=== PATIENT | male | born 2000 | race Caucasian/White ===

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

== ENCOUNTER → 2021-04-13 15:35 | Outpatient (CLI) | payer MEDICAID, SELFPAY ==
--- NOTE | 2021-04-13 15:55 | RAD_ITS ---
STUDY: X-RAY CHEST REASON FOR EXAM: Male, 20 years old. PNEUMONIA TECHNIQUE: Frontal and lateral views COMPARISON: None. FINDINGS: The lungs are clear and expanded. There is no demonstrated pleural abnormality. Normal size heart. Normal mediastinum and ricardo. Normal visualized pulmonary arteries. Normal visualized aortic arch and descending thoracic aorta. Normal visualized thoracic spine. Normal visualized ribs, clavicles, and shoulders. There is no demonstrated abnormality of the visualized soft tissue structures of the upper abdomen. RAD/Chest PA and Lateral IMPRESSION: Normal x-ray examination of the chest. Electronically Signed: Eb Patterson DO at 16:08 EST Tel [phone], Service support ,
[2021-04-13 16:26] LABS: Absolute Lymphocyte Count 2.77 X10^3/uL (0.83-4.51); Absolute Neutrophil Count 5.1 X10^3/uL (2.0-7.7); Basophil# 0.02 X10^3/uL; Basophil% 0.2 % (0-1); Eosinophil# 0.21 X10^3/uL; Eosinophils% 2.4 % (0-5); Hematocrit 46.1 % (40-54); Hemoglobin 14.6 g/dL (13.0-16.5); Lymphocyte # 2.77 X10^3/ul (0.83-4.51); Lymphocyte % 31.8 % (19-41); Mean Corp Hgb Conc 31.7 g/dL (32-36); Mean Corpuscular Hgb 29.3 pg (27.0-32.0); Mean Corpuscular Volume 92.6 fL (80-94); Monocyte# 0.56 X10^3/uL; Monocyte% 6.4 % (0-10); NRBC Flagged by Analyzer 0 % (0-5); Neutrophil # 5.13 X10^3/uL (2.7-7.7); Neutrophil % 59.1 % (47-70); Platelet Count 188 K/mm3 (150-450); RBC Distribution Width CV 13.7 % (11.6-14.6); RBC Distribution Width SD 46.9 fl (35.1-43.9); Red Blood Count 4.98 M/mm3 (4.6-6.2); White Blood Count 8.7 K/mm3 (4.4-11.0)
[2021-04-13 17:20] LABS: ALB/GLOB Ratio 0.9 RATIO (0.9-2.4); AST(SGOT) 20 U/L (15-37); Alanine Aminotransfer ALT/SGPT 21 U/L (16-61); Albumin, Serum 3.7 g/dL (3.2-5.0); Alkaline Phosphatase 152 U/L (45-117); Anion Gap 4 (5-15); BUN 16 mg/dL (7-18); BUN/Creat Ratio 19.2 RATIO (10-20); Calcium,Total 9.3 mg/dL (8.5-10.1); Chloride 105 mmol/L (98-107); Creatinine, Serum 0.83 mg/dL (0.70-1.30); EST Glomerular Filtration Rate 126 mL/min (>60); Est Glom Filt Rate - Afr Amer 152 mL/min (>60); Glucose 101 mg/dL (74-106); Potassium 4.4 mmol/L (3.5-5.1); Protein, Total 7.7 g/dL (6.4-8.2); Sodium Level 138 mmol/L (136-145)
== END ==
PROVIDERS: Visit Provider Nurse Practitioner Adult Health
DX: J18.9 Pneumonia, unspecified organism (principal)
CPT/HCPCS: 36415; 71046; 80053; 85025

== ENCOUNTER 2021-04-19 13:53 | Emergency (ER) | payer MEDICAID, SELFPAY ==
[2021-04-19 13:54] VITALS: BP 146/78; PULSE 121; RESP 18; TEMP 36.9; O2SAT 99; BMI 21.4
--- NOTE | 2021-04-19 14:11 | EX.ED.UPPERE ---
HPI History of Present Illness Chief Complaint: Laceration Detail of Chief Complaint: Left and left wrist Informant: patient Narrative Narrative: Patient presents to the emergency department with laceration to his left wrist that occurred prior to arrival in the emergency department. Patient states that he was cutting a pipe and was using a pocket knife when it slipped and he accidentally lacerated his left wrist. Patient denies feeling depressed or suicidal. This was not intentional. Patient is right-hand dominant. Patient is unsure of his last tetanus shot but does not want to have one. Patient tells me that he is homeless. [facility] Medical History (Updated 04/19/21 @ 14:[address] Adolph Ferrari DO) ADD (attention deficit disorder) Drug abuse Home Medications NK 04/19/21 [History Last Taken Unknown] Allergy/AdvReac Type Severity Reaction Status Date / Time No Known Allergies Allergy Verified 04/19/21 13:53 Social History Smoking Status: Current every day smoker tobacco type: cigarettes ROS ROS ED Constitutional Constitutional ED: Reports systems reviewed and no addt'l complaints, except as documented; Denies body ache(s), change in weight or chills Eyes Eyes: Denies acute decrease in peripheral vision, change in vision, double vision or loss of vision ENT ENT ED: Reports none; Denies ear pain, lip swelling, loss taste/smell, neck pain, otalgia or sore throat Cardiovascular Cardiovascular: Reports none; Denies abdominal pain, chest pain with activity, leg edema, lightheadedness, palpitations, rapid heart rate or syncope Respiratory/Chest Respiratory/Chest: Reports none; Denies change in mental status, dry cough, dyspnea, hemoptysis, shortness of breath at rest or shortness of breath with exertion Gastrointestinal Gastrointestinal: Reports none; Denies abdominal pain, change in stool character, diarrhea, hematemesis, hematochezia, melena, rectal bleeding or vomiting Genitourinary Genitourinary ED: Reports none; Denies abdominal discomfort, anuria, dysuria, genital pain or polyuria Musculoskeletal Musculoskeletal: Reports none; Denies arthralgias, back pain, difficulty walking, extremity pain, muscle weakness or myalgias Integumentary Reports none and other Details: Laceration left wrist ; Denies abscess or rash Neurologic Neurologic: Reports none; Denies abnormal gait, confusion, focal weakness, frequent falls, headache(s), loss of vision, numbness, paresthesias, radicular pain, vertigo or weakness Psychiatric Psychiatric: Reports systems reviewed and no addt'l complaints, except as documented and none; Denies behavioral changes, confusion, difficulty concentrating, hallucinations, suicidal ideation, tactile hallucinations or visual hallucinations Endocrine Endocrinology: Denies none, cold intolerance, excessive sweating, fatigue or heat intolerance Hematologic/Lymphatic Hematologic/Lymphatic: Reports none; Denies anemia, easy bleeding or easy bruising Allergic/Immunologic Allergic/Immunologic ED: Denies as per HPI, none, lip swelling, mouth swelling, throat swelling, tongue swelling or hives EXAM Physical Exam Const Vital Signs: 04/19/21 13:54 Temperature 98.4 F Temperature Source Temporal Pulse Rate 121 H Respiratory Rate 18 Blood Pressure 146/78 H Blood Pressure Mean 100 Pulse Ox 99 Oxygen Delivery Method Room Air Positive well nourished and well developed General Appearance ED: well developed and NAD HEENT Reports TM's clear and moist mucous membranes normocephalic and atraumatic; Negative for trauma or tenderness Tympanic Membrane ED: Yes TM's clear Eyes PERRL and EOMs intact bilaterally General Eye ED: Negative for pale conjunctiva or scleral icterus Neck no lymphadenopathy, supple and no JVD General: Negative for tenderness Chest Wall inspection of chest normal and palpation of chest normal Chest: Negative for tenderness Resp normal respiratory effort and clear to auscultation bilaterally Effort and Inspection: Negative for respiratory distress or pain with movement Auscultation: Negative for rhonchi, wheezes or diminished lung sounds Cardio regular rate, regular rhythm, S1 normal heart sound, S2 normal heart sound and no murmurs Peripheral Pulses: pulses 2+ throughout GI normal to inspection, nondistended, normoactive bowel sounds, soft to palpation, non-tender, non-distended and no masses Back/Spine no CVA tenderness and no thoracic nor lumbar tenderness Extremity Extremity Narrative: Evaluation of the left wrist does reveal a laceration over the volar aspect starting at the thenar eminence and traversing proximally towards the ulnar aspect of the wrist measuring approximately 5 cm in total length. The majority of the laceration is extremely superficial however the proximal third of the laceration is into the subcutaneous tissues. There is no active bleeding. It is well approximated. Patient has normal range of motion flexion extension of all digits. He has normal sensation. Normal ulnar and radial pulses. The laceration does not traverse the ulnar radial artery. General Extremety ED: Negative for edema General Extremity: Negative for edema Neuro oriented x3, CN's II-XII intact bilaterally, no sensory deficits noted and gait normal Sensorium / Orientation: awake, alert, oriented to person, oriented to place and oriented to time Motor Exam: strength 5/5 throughout and strength abnormal Psych mental status grossly normal Skin no rashes or lesions noted and no wounds MDM MDM MDM Narrative Medical decision making narrative: I discussed treatment options with patient including suture repair versus Dermabond repair versus just clean dressing as it is well approximated nonbleeding and superficial. Patient would prefer the Dermabond repair and clean dressing. I feel this is a reasonable approach given the laceration is very superficial and there is no active bleeding and is well approximated. The wound was cleansed with saline. Use Dermabond to seal the wound edges. Patient taught procedure well. Clean dressing was applied. Discharge Plan Triage Chief Complaint: Laceration ED Provider: Adolph Ferrari Dx/Rx/DC Orders Clinical Impression: Laceration of left wrist Instructions: ED Laceration, Extremity: Skin Glue Prescriptions: No Action NK RF: 0 Primary Care Provider: [facility] Referrals: [facility] [Primary Care Provider] - 3-5 Days Disposition Disposition: Home, Self Care
[2021-04-19 14:22] VITALS: PULSE 118; RESP 16; O2SAT 99
== END 2021-04-19 14:22 | disposition home or self-care (01) ==
PROVIDERS: Emergency Provider Emergency Medicine
DX: S61.512A Laceration without foreign body of left wrist, initial encounter (principal); W26.0XXA Contact with knife, initial encounter; Y93.9 Activity, unspecified; Y92.89 Other specified places as the place of occurrence of the external cause; Y99.8 Other external cause status; F17.210 Nicotine dependence, cigarettes, uncomplicated; Z59.00 Homelessness unspecified; F98.8 Other specified behavioral and emotional disorders with onset usually occurring in childhood and adolescence
CPT/HCPCS: 12002; 99283

== ENCOUNTER 2021-04-23 01:10 | Emergency (ER) | payer MEDICAID, SELFPAY ==
[2021-04-23 01:12] VITALS: BP 149/82; PULSE 119; RESP 26; TEMP 38.1; O2SAT 99; BMI 22.5
--- NOTE | 2021-04-23 01:20 | RAD_ITS ---
STUDY: X-RAY CHEST REASON FOR EXAM: Male, 20 years old patient with cough. TECHNIQUE: Single AP portable view of the chest. COMPARISON: Chest radiograph dated 04/13/2021. FINDINGS: The lungs are clear and hyperexpanded. There is no demonstrated pleural abnormality. Normal size heart. Normal mediastinum and ricardo. Normal visualized pulmonary arteries. Normal visualized aortic arch and descending thoracic aorta. Normal visualized thoracic spine. Normal visualized ribs, clavicles, and shoulders. There is no demonstrated abnormality of the visualized soft tissue structures of the upper abdomen. RAD/Chest 1 View (Portable) IMPRESSION: No radiographic evidence of acute cardiopulmonary disease. Electronically Signed: Diana Stiles MD at 2:08 EST , Service support ,
--- NOTE | 2021-04-23 01:21 | EX.ED.DYSGE1 ---
HPI History of Present Illness Chief Complaint: General Illness Informant: patient Narrative Narrative: Patient rambling and difficult to understand. He states he is here because he felt something move from his right upper arm up towards his right neck. He was concerned he may have a blood clot. No swelling noted to the right arm. He does note that he quit using drugs a couple days ago. He does have track [place] noted on the left arm but not on the right. He also tells me he is currently on albuterol and doxycycline for pneumonia. He does report that he is homeless. He was recently seen with a left wrist laceration and states that is healing well. [facility] Medical History ADD (attention deficit disorder) Drug abuse Home Medications NK 04/19/21 [History Last Taken Unknown] Allergy/AdvReac Type Severity Reaction Status Date / Time No Known Allergies Allergy Verified 04/23/21 01:14 Social History Smoking Status: Current every day smoker tobacco type: cigarettes ROS ROS ED Constitutional Constitutional ED: Denies chills or fever(s) Eyes Eyes: Denies change in vision ENT ENT ED: Reports other Details: Sinus drainage ; Denies sore throat Cardiovascular Cardiovascular: Denies chest pain Respiratory/Chest Respiratory/Chest: Reports cough; Denies dyspnea Gastrointestinal Gastrointestinal: Denies abdominal pain, diarrhea, nausea or vomiting Genitourinary Genitourinary ED: Denies dysuria Musculoskeletal Musculoskeletal: Reports myalgias; Denies back pain Integumentary Denies rash Neurologic Neurologic: Denies headache(s) or weakness Allergic/Immunologic Allergic/Immunologic ED: Denies urticaria EXAM Physical Exam Const Vital Signs: 04/23/21 01:12 04/23/21 01:16 Temperature 100.5 F H Temperature Source Oral Pulse Rate 119 H Respiratory Rate 26 H Respiratory Effort Normal Respiratory Pattern Normal Blood Pressure 149/82 H Blood Pressure Mean 104 Pulse Ox 99 Oxygen Delivery Method Room Air Positive well nourished and well developed General Appearance ED: well developed HEENT Reports moist mucous membranes Eyes PERRL and EOMs intact bilaterally Neck no lymphadenopathy and supple Chest Wall inspection of chest normal and palpation of chest normal Resp normal respiratory effort and clear to auscultation bilaterally Cardio Rate: tachycardic GI non-tender Palpation: soft Extremity Extremity Narrative: No focal tenderness or edema noted over the right upper extremity. Strong distal pulses. Track [place] noted to the antecubital space of the left arm. No sign of secondary infection. Healing superficial laceration to the volar left wrist with no sign of infection. Neuro no sensory deficits noted Sensorium / Orientation: alert Motor Exam: strength 5/5 throughout Psych Psych Narrative: Pressured speech. MDM MDM MDM Narrative Medical decision making narrative: Patient did have a temperature of 100.5 on arrival. He was given Tylenol. Covid swab and portable chest x-ray ordered. Lab Data Labs: Rapid Covid test negative Radiography Diagnostic Testing: Clinical Impression(s) from Imaging Studies Chest X-Ray 04/23/21 01:20 IMPRESSION: No radiographic evidence of acute cardiopulmonary disease. Electronically Signed: Diana Stiles MD at 2:08 EST , Service support , Treatment and Re-Evaluation Comments:: Covid test is unremarkable. Chest x-ray is clear with no evidence of infiltrate. Test results discussed with the patient. He still raises concern of thrombosis. There is no evidence of edema in his neck or right upper extremity at this time. He is here at 2 AM and I advised him I do not have the ability to get an ultrasound at this hour to rule out a blood clot. He can follow-up with his doctor [facility] and they can order an outpatient test if deemed appropriate. I did encourage him to take his doxycycline as written twice a day. Discharge Plan Triage Chief Complaint: General Illness ED Provider: Shahla Carcamo Dx/Rx/DC Orders Clinical Impression: URI (upper respiratory infection) Instructions: Adult Self-Care for Colds Prescriptions: No Action NK RF: 0 Primary Care Provider: Isabella Guajardo Referrals: [facility] Isabella Silver [Primary Care Provider] - 5-7 Days Disposition Disposition: Home, Self Care
[2021-04-23] MEDS: Acetaminophen 325 MG Tablet 650 MG PO (01:35)
[2021-04-23 02:24] VITALS: BP 145/79; PULSE 105; RESP 16; O2SAT 97
== END 2021-04-23 02:30 | disposition home or self-care (01) ==
PROVIDERS: Emergency Provider Emergency Medicine
DX: J06.9 Acute upper respiratory infection, unspecified (principal); F17.210 Nicotine dependence, cigarettes, uncomplicated; Z59.00 Homelessness unspecified
CPT/HCPCS: 71045; 87426; 99282

== ENCOUNTER → 2022-01-24 | Outpatient (CLI) | payer MEDICAID, SELFPAY ==
[2022-01-24 15:01] LABS: Absolute Lymphocyte Count 2.25 X10^3/uL (0.83-4.51); Absolute Neutrophil Count 5.1 X10^3/uL (2.0-7.7); Basophil# 0.02 X10^3/uL; Basophil% 0.2 % (0-1); Eosinophil# 0.22 X10^3/uL; Eosinophils% 2.7 % (0-5); Hematocrit 45.7 % (40-54); Hemoglobin 15.3 g/dL (13.0-16.5); Lymphocyte # 2.25 X10^3/ul (0.83-4.51); Lymphocyte % 27.5 % (19-41); Mean Corp Hgb Conc 33.5 g/dL (32-36); Mean Corpuscular Hgb 29.9 pg (27.0-32.0); Mean Corpuscular Volume 89.4 fL (80-94); Mean Platelet Vol. 11.9 fl (6.2-12.0); Monocyte# 0.58 X10^3/uL; Monocyte% 7.1 % (0-10); NRBC Flagged by Analyzer 0 % (0-5); Neutrophil % 62.3 % (47-70); Platelet Count 157 K/mm3 (150-450); RBC Distribution Width CV 12.3 % (11.6-14.6); RBC Distribution Width SD 40.7 fl (35.1-43.9); Red Blood Count 5.11 M/mm3 (4.6-6.2); White Blood Count 8.2 K/mm3 (4.4-11.0)
[2022-01-24 15:22] LABS: ALB/GLOB Ratio 1.3 RATIO (0.9-2.4); AST(SGOT) 17 U/L (15-37); Alanine Aminotransfer ALT/SGPT 22 U/L (16-61); Albumin, Serum 4.3 g/dL (3.2-5.0); Alkaline Phosphatase 137 U/L (45-117); Anion Gap 5 (5-15); BUN 13 mg/dL (7-18); BUN/Creat Ratio 13.7 RATIO (10-20); Calcium,Total 9.8 mg/dL (8.5-10.1); Chloride 108 mmol/L (98-107); Creatinine, Serum 0.95 mg/dL (0.70-1.30); EST Glomerular Filtration Rate 107 mL/min (>60); Est Glom Filt Rate - Afr Amer 130 mL/min (>60); Globulin 3.2 g/dL (2.2-4.2); Glucose 73 mg/dL (74-106); Potassium 4.8 mmol/L (3.5-5.1); Protein, Total 7.5 g/dL (6.4-8.2); Sodium Level 140 mmol/L (136-145)
== END | disposition home or self-care (01) ==
LOC: BIMLAB 14:01
PROVIDERS: PCP Internal Medicine; Referring Provider Internal Medicine; Visit Provider Internal Medicine
DX: F32.1 Major depressive disorder, single episode, moderate (principal)
CPT/HCPCS: 36415; 80053; 85025

== ENCOUNTER 2022-02-28 11:26 | Emergency (ER) | payer MEDICAID, SELFPAY ==
[2022-02-28 11:27] VITALS: BP 116/79; PULSE 79; RESP 16; TEMP 36.8; O2SAT 97; BMI 24.2
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
[2022-02-28] MEDS: 0.9% Normal Saline 1,000 ML 1000 ML IV (12:48)
[2022-02-28 12:53] VITALS: PULSE 78; RESP 16
[2022-02-28] MEDS: Ipratropium/Albuterol Sulfate 3 ML AMPUL.NEB INHALATION (12:53)
[2022-02-28 13:02] LABS: Absolute Lymphocyte Count 1.78 X10^3/uL (0.83-4.51); Absolute Neutrophil Count 5.7 X10^3/uL (2.0-7.7); Basophil# 0.03 X10^3/uL; Basophil% 0.4 % (0-1); Eosinophil# 0.11 X10^3/uL; Eosinophils% 1.4 % (0-5); Hematocrit 48.9 % (40-54); Lymphocyte # 1.78 X10^3/ul (0.83-4.51); Lymphocyte % 22.1 % (19-41); Mean Corp Hgb Conc 34.8 g/dL (32-36); Mean Corpuscular Hgb 31.1 pg (27.0-32.0); Mean Corpuscular Volume 89.4 fL (80-94); Mean Platelet Vol. 10.9 fl (6.2-12.0); Monocyte# 0.37 X10^3/uL; Monocyte% 4.6 % (0-10); NRBC Flagged by Analyzer 0 % (0-5); Neutrophil # 5.73 X10^3/uL (2.7-7.7); Neutrophil % 71.3 % (47-70); Platelet Count 149 K/mm3 (150-450); RBC Distribution Width CV 12.6 % (11.6-14.6); RBC Distribution Width SD 41.7 fl (35.1-43.9); Red Blood Count 5.47 M/mm3 (4.6-6.2)
--- NOTE | 2022-02-28 13:10 | RAD_ITS ---
STUDY: X-RAY CHEST REASON FOR EXAM: Male, 21 years old. Cough and chest congestion. Shortness of breath. TECHNIQUE: PA and lateral views of the chest. COMPARISON: Comparison is made with prior study dated 04/23/2021. FINDINGS: Hyperinflation. The lungs are clear. There is no demonstrated pleural abnormality. Normal size heart. Normal mediastinum and ricardo. Normal visualized pulmonary arteries. Normal visualized aortic arch and descending thoracic aorta. Normal visualized thoracic spine. Normal visualized ribs, clavicles, and shoulders. There is no demonstrated abnormality of the visualized soft tissue structures of the upper abdomen. RAD/Chest PA and Lateral IMPRESSION: Hyperinflation. The lungs are clear Electronically Signed: Randall Wilkerson MD at 13:21 EDT ,
[2022-02-28 13:15] LABS: BUN 8 mg/dL (7-18); Creatinine, Serum 0.89 mg/dL (0.70-1.30); EST Glomerular Filtration Rate 115 mL/min (>60); Est Glom Filt Rate - Afr Amer 139 mL/min (>60); Glucose 88 mg/dL (74-106)
[2022-02-28 13:16] LABS: ALB/GLOB Ratio 1.4 RATIO (0.9-2.4); AST(SGOT) 17 U/L (15-37); Alanine Aminotransfer ALT/SGPT 25 U/L (16-61); Albumin, Serum 4.6 g/dL (3.2-5.0); Alkaline Phosphatase 138 U/L (45-117); Anion Gap 5 (5-15); Calcium,Total 9.9 mg/dL (8.5-10.1); Chloride 109 mmol/L (98-107); Globulin 3.4 g/dL (2.2-4.2); Potassium 4.6 mmol/L (3.5-5.1); Sodium Level 142 mmol/L (136-145)
[2022-02-28 13:26] LABS: Bacteria 0 SEEN /hpf (None Seen); Mucous, Urine 0 SEEN /hpf (<or=2+); Red Blood Cells-Urine 0 SEEN /hpf (0-5)
[2022-02-28 13:27] LABS: Color, Urine Yellow (Yellow); Glucose, Dipstick Normal (Normal); Ketone-Dipstick Negative (Negative); Leukocyte Esterase-Dipstick 25 /ul (Negative); Nitrite-Dipstick Negative (Negative); Occult Blood-Urine Negative /ul (Negative); Protein-Dipstick Negative (Negative); Urine Bilirubin Dipstick Negative (Negative); Urine Clarity Sl. Cloudy (Clear); Urine Urobilinogen Normal (Normal)
[2022-02-28 13:33] LABS: Squamous Epithelial Cells - UA 0-5 SEEN /hpf (0-5); White Blood Cells 0-5 SEEN /hpf (0-5)
[2022-02-28 14:12] VITALS: RESP 18
== END 2022-02-28 14:19 | disposition home or self-care (01) ==
PROVIDERS: Emergency Provider Emergency Medicine; PCP Internal Medicine; Visit Provider Emergency Medicine
DX: J06.9 Acute upper respiratory infection, unspecified (principal); R51.9 Headache, unspecified; R35.0 Frequency of micturition; F17.210 Nicotine dependence, cigarettes, uncomplicated; Z82.5 Family history of asthma and other chronic lower respiratory diseases
CPT/HCPCS: 71046; 80053; 81001; 85025; 87428; 94640; 99282; J7030; A4216

== ENCOUNTER 2022-10-12 16:39 | Emergency (ER) | payer MEDICAID, SELFPAY ==
[2022-10-12 16:40] VITALS: BP 120/54; PULSE 109; RESP 20; TEMP 37.2; O2SAT 95; BMI 24.6
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
[2022-10-12] MEDS: 0.9% Normal Saline 1,000 ML 150 ML IV (17:09)
[2022-10-12 17:25] LABS: Absolute Lymphocyte Count 2.17 X10^3/uL (0.83-4.51); Absolute Neutrophil Count 5.5 X10^3/uL (2.0-7.7); Basophil# 0.03 X10^3/uL; Basophil% 0.4 % (0-1); Eosinophil# 0.07 X10^3/uL; Eosinophils% 0.9 % (0-5); Hematocrit 47.2 % (40-54); Hemoglobin 16.5 g/dL (13.0-16.5); Lymphocyte # 2.17 X10^3/ul (0.83-4.51); Lymphocyte % 26.6 % (19-41); Mean Corpuscular Hgb 31.8 pg (27.0-32.0); Mean Corpuscular Volume 90.9 fL (80-94); Mean Platelet Vol. 10.4 fl (6.2-12.0); Monocyte# 0.35 X10^3/uL; Monocyte% 4.3 % (0-10); NRBC Flagged by Analyzer 0 % (0-5); Neutrophil # 5.52 X10^3/uL (2.7-7.7); Neutrophil % 67.4 % (47-70); Platelet Count 189 K/mm3 (150-450); RBC Distribution Width CV 12.7 % (11.6-14.6); Red Blood Count 5.19 M/mm3 (4.6-6.2); White Blood Count 8.2 K/mm3 (4.4-11.0)
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
[2022-10-12 17:37] LABS: Partial Thromboplast Time 27.3 Seconds (24.1-36.2); Prothrombin Time (Protime)PT. 13.1 SECONDS (11.7-14.9)
[2022-10-12 17:39] LABS: Anion Gap 7 (5-15); BUN 10 mg/dL (7-18); BUN/Creat Ratio 12.2 RATIO (10-20); Calcium,Total 9.3 mg/dL (8.5-10.1); Chloride 111 mmol/L (98-107); Creatinine, Serum 0.82 mg/dL (0.70-1.30); EST Glomerular Filtration Rate 126 mL/min (>60); Est Glom Filt Rate - Afr Amer 153 mL/min (>60); Estimated Creatinine Clearance 147.14 ml/min; Glucose 102 mg/dL (74-106); Potassium 3.9 mmol/L (3.5-5.1); Sodium Level 142 mmol/L (136-145)
[2022-10-12 18:07] VITALS: RESP 18
--- NOTE | 2022-10-12 18:21 | ED.RN ---
PT DISCONTINUED SELF FROM IV FLUIDS AND ACTIVITY THERAPIST. PT WALKING AROUND THE ROOM ASKING TO MAKE A PHONE CALL, AND FOR A NICOTINE PATCH. PT REDIRECTED BACK TO BED, AGREES TO GET IV FLUID INFUSION AND SITS BACK IN THE BED. PT REFUSING THE ACTIVITY THERAPIST AT THIS TIME. PT REPORTS HE SPOKE WITH HIS MOM. MOM CALLS IN TO ED AND SPEAKS WITH THIS RN. MOTHER INFORMED OF PRESENCE IN ED, BUT THAT WITHOUT PT PERMISSION THAT THIS RN IS UNABLE TO GIVE MORE INFORMATION. MOTHER REPORTS SHE IS TRYING TO GET A RIDE TO THE ED.
[2022-10-12 18:30] LABS: Amphetamine Urine VISTA NEGATIVE (<1000 ng/mL); Barbiturate Urine VISTA NEGATIVE (< 200 ng/mL); Benzodiazepine Urine VISTA NEGATIVE (< 200 ng/mL); Cocaine Urine VISTA NEGATIVE (< 300 ng/mL); Ecstacy Urine VISTA NEGATIVE (< 500 ng/mL); Methadone Urine VISTA NEGATIVE (< 300 ng/mL); PCP Urine VISTA NEGATIVE (< 25 ng/mL); THC Urine VISTA NEGATIVE (< 50 ng/mL); Vista UDS pH Range 5
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
== END 2022-10-12 19:00 | disposition home or self-care (01) ==
PROVIDERS: Emergency Provider Emergency Medicine; PCP Internal Medicine; Visit Provider Emergency Medicine
DX: F10.129 Alcohol abuse with intoxication, unspecified (principal); F17.210 Nicotine dependence, cigarettes, uncomplicated; S10.91XA Abrasion of unspecified part of neck, initial encounter; S00.83XA Contusion of other part of head, initial encounter; F98.8 Other specified behavioral and emotional disorders with onset usually occurring in childhood and adolescence; F32.A Depression, unspecified; V47.5XXA Car driver injured in collision with fixed or stationary object in traffic accident, initial encounter; Y90.9 Presence of alcohol in blood, level not specified
CPT/HCPCS: 70450; 70486; 71045; 71260; 72125; 74177; 80048; 80307; 82077; 85025; 85610; 85730; 93005; 96360; 96361; 99285; J7030; Q9967; A4216

== ENCOUNTER 2022-10-16 15:24 | Observation (INO) | payer MEDICAID, SELFPAY ==
[2022-10-16 15:24] VITALS: BP 125/80; PULSE 98; RESP 18; TEMP 36.1; O2SAT 100; BMI 24.3
[2022-10-16 15:47] LABS: Absolute Lymphocyte Count 1.53 X10^3/uL (0.83-4.51); Absolute Neutrophil Count 6.3 X10^3/uL (2.0-7.7); Basophil# 0.02 X10^3/uL; Basophil% 0.2 % (0-1); Eosinophil# 0.05 X10^3/uL; Eosinophils% 0.6 % (0-5); Hemoglobin 15.6 g/dL (13.0-16.5); Lymphocyte # 1.53 X10^3/ul (0.83-4.51); Lymphocyte % 18.3 % (19-41); Mean Corp Hgb Conc 33.9 g/dL (32-36); Mean Corpuscular Hgb 31.1 pg (27.0-32.0); Mean Corpuscular Volume 91.8 fL (80-94); Mean Platelet Vol. 10.5 fl (6.2-12.0); Monocyte# 0.39 X10^3/uL; Monocyte% 4.7 % (0-10); NRBC Flagged by Analyzer 0 % (0-5); Neutrophil # 6.34 X10^3/uL (2.7-7.7); Neutrophil % 76.1 % (47-70); Platelet Count 172 K/mm3 (150-450); RBC Distribution Width CV 12.5 % (11.6-14.6); RBC Distribution Width SD 42.2 fl (35.1-43.9); Red Blood Count 5.01 M/mm3 (4.6-6.2); White Blood Count 8.3 K/mm3 (4.4-11.0)
[2022-10-16 16:05] LABS: ALB/GLOB Ratio 1.2 RATIO (0.9-2.4); AST(SGOT) 24 U/L (15-37); Alanine Aminotransfer ALT/SGPT 31 U/L (16-61); Albumin, Serum 4.1 g/dL (3.2-5.0); Alkaline Phosphatase 133 U/L (45-117); Anion Gap 5 (5-15); BUN 9 mg/dL (7-18); BUN/Creat Ratio 10.8 RATIO (10-20); Calcium,Total 9.1 mg/dL (8.5-10.1); Chloride 108 mmol/L (98-107); Creatinine, Serum 0.83 mg/dL (0.70-1.30); EST Glomerular Filtration Rate 124 mL/min (>60); Est Glom Filt Rate - Afr Amer 150 mL/min (>60); Estimated Creatinine Clearance 145.36 ml/min; Globulin 3.4 g/dL (2.2-4.2); Glucose 92 mg/dL (74-106); Potassium 3.8 mmol/L (3.5-5.1); Protein, Total 7.5 g/dL (6.4-8.2); Sodium Level 138 mmol/L (136-145)
[2022-10-16 16:49] LABS: Amphetamine Urine VISTA POSITIVE (<1000 ng/mL); Barbiturate Urine VISTA NEGATIVE (< 200 ng/mL); Benzodiazepine Urine VISTA NEGATIVE (< 200 ng/mL); Cocaine Urine VISTA NEGATIVE (< 300 ng/mL); Ecstacy Urine VISTA NEGATIVE (< 500 ng/mL); Methadone Urine VISTA NEGATIVE (< 300 ng/mL); PCP Urine VISTA NEGATIVE (< 25 ng/mL); THC Urine VISTA NEGATIVE (< 50 ng/mL); Vista UDS pH Range 5
[2022-10-16 16:52] LABS: Alcohol, Blood (Medical)-Serum < 3.0 mg/dL
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
[2022-10-16 17:25] VITALS: BP 108/60; PULSE 88; RESP 18; O2SAT 99
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
[2022-10-16 17:39] VITALS: BP 108/60; PULSE 91; RESP 16; RESP 18; TEMP 36.4; O2SAT 99
--- NOTE | 2022-10-16 17:40 | CM.ED ---
Social Work Referral Source: MD Fleming Referral Reason: HUGH Fleming met with SW and reviewed patient's interest in detox but limited alcohol use. Patient was encouraged to come in for detox from his PO. SW met with patient and introduced herself and role as [facility] Pricing Strategist. Patient was sitting on hospital bed and agreeable to talk with SW. SW inquired about patient's use, current services and interest/knowledge of detox program. Patient explained he is on probation and was encouraged to detox before going to [facility] for residential treatment. Patient reports alcohol and meth use with last use yesterday. Patient reports unstable housing but could contact his mother or grandmother to discuss staying with them if needed. SW provided support and reviewed [facility] program rules such as belongings being locked up and meeting with addictions therapist for discharge plan. Patient voiced understanding and reports interest in detox so he can then go to [facility] per his PO. SW reviewed admission process. POLO reviewed conversation with MD Fleming. MD fletcher plummer hospitalist to review. POLO updated Pedro Luismalia patient was being admitted for [facility]. Plan: HUGH Trammell FRIT MAKER, RAMAKRISHNA
[2022-10-16 18:24] VITALS: BMI 24.7
[2022-10-16 18:30] VITALS: BP 129/57; PULSE 88; RESP 18; TEMP 36.7; O2SAT 99
[2022-10-16] MEDS: hydrOXYzine PAM 25 MG Capsule 50 MG PO (18:45)
[2022-10-16] MEDS: Phenobarbital 32.4 MG Tablet 97.2 MG PO ×2 (18:45→22:39)
[2022-10-16] MEDS: Gabapentin 300 MG Capsule PO (20:40)
[2022-10-16] MEDS: traZODone 100 MG Tablet PO (20:40)
[2022-10-16 22:35] VITALS: BP 106/52; PULSE 83; RESP 16; TEMP 36.6; O2SAT 99
[2022-10-17 02:35] VITALS: BP 109/60; PULSE 59; RESP 16; TEMP 36.3; O2SAT 95
[2022-10-17] MEDS: Phenobarbital 32.4 MG Tablet 97.2 MG PO ×3 (02:36→10:52)
[2022-10-17 06:14] LABS: Absolute Lymphocyte Count 2.44 X10^3/uL (0.83-4.51); Absolute Neutrophil Count 2.9 X10^3/uL (2.0-7.7); Basophil# 0.03 X10^3/uL; Basophil% 0.5 % (0-1); Eosinophil# 0.11 X10^3/uL; Eosinophils% 1.9 % (0-5); Hematocrit 45.3 % (40-54); Hemoglobin 15.1 g/dL (13.0-16.5); Lymphocyte # 2.44 X10^3/ul (0.83-4.51); Lymphocyte % 42.1 % (19-41); Mean Corp Hgb Conc 33.3 g/dL (32-36); Mean Corpuscular Hgb 30.7 pg (27.0-32.0); Mean Corpuscular Volume 92.1 fL (80-94); Monocyte# 0.34 X10^3/uL; Monocyte% 5.9 % (0-10); NRBC Flagged by Analyzer 0 % (0-5); Neutrophil # 2.86 X10^3/uL (2.7-7.7); Neutrophil % 49.4 % (47-70); Platelet Count 155 K/mm3 (150-450); RBC Distribution Width CV 12.8 % (11.6-14.6); RBC Distribution Width SD 43.6 fl (35.1-43.9); Red Blood Count 4.92 M/mm3 (4.6-6.2); White Blood Count 5.8 K/mm3 (4.4-11.0)
[2022-10-17 06:35] VITALS: BP 112/67; PULSE 60; RESP 16; TEMP 36.6; O2SAT 96
[2022-10-17 06:46] LABS: Anion Gap 6 (5-15); BUN 8 mg/dL (7-18); BUN/Creat Ratio 11.2 RATIO (10-20); Calcium,Total 8.7 mg/dL (8.5-10.1); Chloride 111 mmol/L (98-107); Creatinine, Serum 0.71 mg/dL (0.70-1.30); EST Glomerular Filtration Rate 148 mL/min (>60); Est Glom Filt Rate - Afr Amer 179 mL/min (>60); Estimated Creatinine Clearance 164.58 ml/min; Glucose 85 mg/dL (74-106); Sodium Level 139 mmol/L (136-145)
[2022-10-17] MEDS: hydrOXYzine PAM 25 MG Capsule 50 MG PO ×2 (08:33→14:53)
[2022-10-17] MEDS: Ondansetron 8 MG Tablet PO (08:33)
[2022-10-17] MEDS: Folic Acid 1 MG Tablet PO (08:33)
[2022-10-17] MEDS: Dicyclomine 10 MG Capsule 20 MG PO ×2 (08:33→14:53)
[2022-10-17] MEDS: Thiamine Hydrochloride 100 MG Tablet PO (08:33)
--- NOTE | 2022-10-17 10:19 | PN.HOSP_ITS ---
Reason for Visit Reason for Visit: Follow-up for chronic alcohol use and dependence and amphetamine use and dependence. Objective Data Objective Data Vital Signs: Vital Signs Temp Pulse Resp BP Pulse Ox O2 Del Method 97.8 F 60 16 112/67 96 Room Air 10/17/22 06:35 10/17/22 06:35 10/17/22 06:35 10/17/22 06:35 10/17/22 06:35 10/17/22 06:35 Oxygen Delivery Method Room Air Weight: 167 lb 12.348 oz Body Mass Index (BMI) 24.7 Lab / Micro Data Result Diagrams: 10/17/22 05:28 10/17/22 05:28 Labs: Laboratory Results - last 24 hr 10/16/22 15:38: WBC 8.3, RBC 5.01, Hgb 15.6, Hct 46.0, MCV 91.8, MCH 31.1, MCHC 33.9, RDW Std Deviation 42.2, RDW Coeff of Giovanni 12.5, Plt Count 172, MPV 10.5, Immature Gran % (Auto) 0.100, Neut % (Auto) 76.1 H, Lymph % (Auto) 18.3 L, [place] % (Auto) 4.7, Eos % (Auto) 0.6, Baso % (Auto) 0.2, Absolute Neuts (auto) 6.3, Absolute Lymphs (auto) 1.53, Nucleated RBC % 0 10/16/22 15:38: Sodium 138, Potassium 3.8, Chloride 108 H, Carbon Dioxide 25.0, Anion Gap 5, BUN 9, Creatinine 0.83, Estim Creat Clear Calc 145.36, Est GFR (MDRD) Af Amer 150, Est GFR (MDRD) Non-Af 124, BUN/Creatinine Ratio 10.8, Glucose 92, Calcium 9.1, Total Bilirubin 0.40, AST 24, ALT 31, Alkaline Phosphatase 133 H, Total Protein 7.5, Albumin 4.1, Globulin 3.4, Albumin/Globulin Ratio 1.2 10/16/22 15:38: Ethyl Alcohol < 3.0 10/16/22 15:40: Urine Opiates Screen NEGATIVE, Urine Methadone Screen NEGATIVE, Ur Barbiturates Screen NEGATIVE, Ur Phencyclidine Scrn NEGATIVE, Ur Amphetamines Screen POSITIVE H, MDMA (Ecstasy) Screen NEGATIVE, U Benzodiazepines Scrn NEGATIVE, Urine Cocaine Screen NEGATIVE, U Cannabinoids Screen NEGATIVE, Ur Drug Screen Comment 10/17/22 05:28: WBC 5.8, RBC 4.92, Hgb 15.1, Hct 45.3, MCV 92.1, MCH 30.7, MCHC 33.3, RDW Std Deviation 43.6, RDW Coeff of Giovanni 12.8, Plt Count 155, MPV 11.0, Im mature Gran % (Auto) 0.200, Neut % (Auto) 49.4, Lymph % (Auto) 42.1 H, [place] % (Auto) 5.9, Eos % (Auto) 1.9, Baso % (Auto) 0.5, Absolute Neuts (auto) 2.9, Absolute Lymphs (auto) 2.44, Nucleated RBC % 0 10/17/22 05:28: Sodium 139, Potassium 4.0, Chloride 111 H, Carbon Dioxide 22.0, Anion Gap 6, BUN 8, Creatinine 0.71, Estim Creat Clear Calc 164.58, Est GFR (MDRD) Af Amer 179, Est GFR (MDRD) Non-Af 148, BUN/Creatinine Ratio 11.2, Glucose 85, Calcium 8.7 Physical Exam Narrative Patient stated he drinks 4 tall beers every day but on Friday he drank he cheri/large quantity of ROM. Patient has history of chronic alcohol use and chronic alcoholic hepatitis. He also has a history of IVDA and was using methamphetamine IV but dystaxic quit IV use and currently snorts methamphetamine about 1 g. Denies opioid use or benzodiazepine use. Chronically cigarette smoker He states intermittently gets right upper quadrant abdominal pain for about 3 years. Currently does not have RUQ pain. Denies chronic stigmata of chronic alcohol use/cirrhosis. Physical exam General: Alert, Oriented x3, Cooperative HEENT: Atraumatic, PERRLA, EOMI, Normocephalic Oral: Oral mucosa moist. No Gingival or Mucosal Lesions/ Ulcerations Neck: Supple, No JVD, Negative Carotid Bruits Lungs: Air entry diminished in bilateral lung bases. No crepitation/rhonchi Cardiovascular: Regular rate, Regular Rhythm, Normal S1, Normal S2, No murmurs Abdomen: Bowel Sounds Present, Soft, Non Tender, Non-Distended. No ascites. Liver not enlarged. : No renal angle tenderness. No suprapubic tenderness. Extremities: No edema, Capillary Refill Less than 3 Seconds Skin: No rashes, No breakdown Musculoskeletal: No Tenderness to Palpation of Joints or Extremities. ROM full and intact. Neurological: Cranial nerves II-XII grossly intact, DTR 2+/4 and Symmetrical, Neuro grossly intact Psych/Mental Status: Flat affect Assessment & Plan Assessment/Plan (1) Alcohol intoxication: PLAN: Plan This 22-year-old gentleman being admitted for chronic alcohol use dependence and desire for detoxification. 1. Acute alcohol withdrawal syndrome with chronic alcohol use dependence and re lapse: Patient is on phenobarbital taper program. Started on 97.2 mg at patient is very drowsy and slept all night and therefore will decrease to 64.8 mg. Discussed with the pharmacy. Patient on phenobarbital based order set along with other adjunctive medications as needed for alcohol withdrawal symptom control. CIWA monitor. On thiamine folic acid multivitamin. 2. Chronic alcoholic hepatitis: This time patient transaminases are normal. Alk phos minimally elevated above upper limit of normal. No acute tenderness in right upper quadrant. 3. Chronic methamphetamine use and dependence: 4. Nicotine dependence: counseled to quit. Nicotine patch 21mg daily DVT prophylaxis; low risk, encourage to ambulate. Charges/Coding Visit Charges Inpatient E&M: 91207 Subs Hosp L2
[2022-10-17 10:55] VITALS: BP 125/70; PULSE 87; RESP 18; TEMP 36.8; O2SAT 98
--- NOTE | 2022-10-17 12:00 | NURSING ---
pt states it is okay to release information to his PO (loan officer assistant) if they would call in. PO name is: Nay Guthrie
--- NOTE | 2022-10-17 12:16 | ADDICTION ---
This typewriter aligner met with PT to conduct ASAM, MSE, AUDIT, DUDIT assessments and to plan for d/c. PT A+Ox4 and participated actively. All assessments completed and placed in PT's chart. PT plans to f/u with [facility] for follow-up in patient treatment services on Friday. [facility] will transport to treatment.
[2022-10-17 14:52] VITALS: BP 121/63; PULSE 74; RESP 18; TEMP 36.6; O2SAT 100
[2022-10-17] MEDS: Phenobarbital 32.4 MG Tablet 64.8 MG PO ×3 (14:54→23:16)
[2022-10-17 18:38] VITALS: BP 119/70; PULSE 79; RESP 18; TEMP 36.6; O2SAT 99
[2022-10-17] MEDS: Gabapentin 300 MG Capsule PO (18:40)
[2022-10-17 23:14] VITALS: BP 105/69; PULSE 63; RESP 24; TEMP 36.6; O2SAT 99
[2022-10-18] MEDS: Phenobarbital 32.4 MG Tablet 64.8 MG PO ×2 (02:51→06:00)
[2022-10-18 02:54] VITALS: BP 107/61; PULSE 58; RESP 16; TEMP 36.4; O2SAT 99
[2022-10-18] MEDS: hydrOXYzine PAM 25 MG Capsule 50 MG PO (03:03)
[2022-10-18] MEDS: Folic Acid 1 MG Tablet PO (08:21)
[2022-10-18] MEDS: Thiamine Hydrochloride 100 MG Tablet PO (08:21)
--- NOTE | 2022-10-18 09:35 | DCINST_ITS ---
Discharge Instructions Diet Discharge Diet: No restrictions Activity Discharge Activity: Return to Normal Activity Weight Bearing Status: Weight bearing as tolerated Dressing / Incision Call your doctor if you observe: Fever of 101 or Higher, Coldness, Increased Pain, Numbness or Tingling, Change in Color, Inability to urinate, Inability to have a bowel movement, Shortness of breath, Dizziness, Fainting spells, Swelling in the ankles, Chest pain, Prolonged hiccupping, Increased palpitations (irregular heartbeat) and Calf discomfort Follow Up Care When: IN 2 WEEKS Test Results: Test results from this visit will be discussed in further detail at your follow- up appointment, if applicable. Discharge Plan Admission Admit Date/Time: 10/16/22 17:32 Primary Reason for Your Visit: acute alcohol withdrawal syndrome and methamph etamine use disorder Attending Provider: Sharan Adams Primary Care Provider: Belia Babin Consulting Providers: Marva Hamilton Discharge Orders/Prescriptions Prescriptions: New thiamine HCl (vitamin B1) [Vitamin B-1] 100 mg Tablet 100 mg PO DAILYCM Qty: 0 0RF nicotine 21 mg/24 hr Patch 24 Hour 21 mg transdermal DAILY Qty: 0 0RF folic acid 1 mg Tablet 1 mg PO DAILYCM Qty: 0 0RF Referrals / Follow Up: Belia Babin MD [Primary Care Provider] - Disposition Disposition (needs filled in before D/C Order can be placed): Home, Self Care
--- NOTE | 2022-10-18 10:15 | DS.PCM_ITS ---
Providers Date of Admission: 10/16/22 Date of Discharge: 10/18/22 Primary Care Physician: Dr. Belia Babin MD Reason For Visit: ALCOHOL DETOXIFICATION Diagnosis Discharge Diagnosis (1) Alcohol intoxication: Status: Acute Code(s): F10.929 - Alcohol use, unspecified with intoxication, unspecified Plan This 22-year-old gentleman being admitted for chronic alcohol use dependence and desire for detoxification.Patient stated he drinks 4 tall beers every day but on Friday he drank heavy/large quantity of Rum. Patient has history of chronic alcohol use and chronic alcoholic hepatitis. He also has a history of IVDA and was using methamphetamine IV but quit IV use and currently snorts methamphetam ine about 1 g. Denies opioid use or benzodiazepine use. He states intermittently gets right upper quadrant abdominal pain for about 3 years. Denies chronic stigmata of chronic alcohol use/cirrhosis. 1. Acute alcohol withdrawal syndrome with chronic alcohol use dependence and relapse: Patient is on phenobarbital taper program. Started on 97.2 mg at patient is very drowsy and slept all night and therefore will decrease to 64.8 mg. Discussed with the pharmacy. Patient on phenobarbital based order set along with other adjunctive medications as needed for alcohol withdrawal symptom control. CIWA monitor. On thiamine folic acid multivitamin. 10/18: Patient is going [facility]. Continue folic acid multivitamin and thiamine. 2. Chronic alcoholic hepatitis: This time patient transaminases are normal. Alk phos minimally elevated above upper limit of normal. 10/18: Mild tenderness over right upper quadrant. No nausea vomiting. Denies any right upper quadrant pain. 3. Chronic methamphetamine use and dependence: 4. Nicotine dependence: counseled to quit. Nicotine patch 21mg daily DVT prophylaxis; low risk, encourage to ambulate. Discharge medication reconciliation done. Discharge follow-up instructions completed. Discharge process discussed with the patient and all questions were answered to patient's satisfaction. Total time spent, exact 35 minutes on discharge meds reconciliation, examination, coordination of care with nurses and ancillary staff, review of imaging and blood test and discussion with the patient on follow-up instructions. Medications at Discharge Home Medications folic acid 1 mg tablet 1 mg PO DAILYCM #0 tabs 10/18/22 nicotine 21 mg/24 hr daily transdermal patch 21 mg transdermal DAILY #0 ea 10/18/22 thiamine HCl (vitamin B1) 100 mg tablet (Vitamin B-1) 100 mg PO DAILYCM #0 tabs 10/18/22 Physical Exam Narrative Seen and examined. Overall feeling better. Phenobarbital dose was decreased yesterday. Physical exam General: Alert, Oriented x3, Cooperative HEENT: Atraumatic, PERRLA, EOMI, Normocephalic Oral: Oral mucosa moist. No Gingival or Mucosal Lesions/ Ulcerations Neck: Supple, No JVD, Negative Carotid Bruits Lungs: Air entry diminished in bilateral lung bases. No crepitation/rhonchi Cardiovascular: Regular rate, Regular Rhythm, Normal S1, Normal S2, No murmurs Abdomen: Bowel Sounds Present, Soft, mild RUQ tenderness, Non-Distended. No ascites. Liver not enlarged. : No renal angle tenderness. No suprapubic tenderness. Extremities: No edema, Capillary Refill Less than 3 Seconds Skin: No rashes, No breakdown Musculoskeletal: No Tenderness to Palpation of Joints or Extremities. ROM full and intact. Neurological: Cranial nerves II-XII grossly intact, DTR 2+/4 and Symmetrical, no seizure. Psych/Mental Status: Flat affect Weight / BMI Weight Weight: 167 lb 12.348 oz Body Mass Index (BMI) 24.7 ABG / Lab / Microbiology Data Result Diagrams: 10/17/22 05:28 10/17/22 05:28 D/C Instructions Discharge Diet: No restrictions Weight Bearing Status: Weight bearing as tolerated Call your doctor if you observe: Fever of 101 or Higher, Coldness, Increased Pain, Numbness or Tingling, Change in Color, Inability to urinate, Inability to have a bowel movement, Shortness of breath, Dizziness, Fainting spells, Swelling in the ankles, Chest pain, Prolonged hiccupping, Increased palpitations (irregular heartbeat) and Calf discomfort When: IN 2 WEEKS Meaningful Use Info Meaningful Use Diagnoses (Choose all that apply): None applicable Discharge Plan Admission Admit Date/Time: 10/16/22 17:32 Primary Reason for Your Visit: acute alcohol withdrawal syndrome and methamphetamine use disorder Attending Provider: Sharan Adams Primary Care Provider: Belia Babin Consulting Providers: Marva Hamilton Discharge Orders/Prescriptions Prescriptions: New thiamine HCl (vitamin B1) [Vitamin B-1] 100 mg Tablet 100 mg PO DAILYCM Qty: 0 0RF nicotine 21 mg/24 hr Patch 24 Hour 21 mg transdermal DAILY Qty: 0 0RF folic acid 1 mg Tablet 1 mg PO DAILYCM Qty: 0 0RF Referrals / Follow Up: Belia Babin MD [Primary Care Provider] - Disposition Disposition (needs filled in before D/C Order can be placed): Home, Self Care Charges/Coding Visit Charges Inpatient E&M: 25646 Disch Hosp >30min
--- NOTE | 2022-10-18 10:49 | PHA.DC.MR ---
Pharmacy Service has performed discharge medication reconciliation for this patient. The patient's discharge medication list was reviewed for discrepancies and discrepancies were resolved. Medication education papers prepared, patient discharged before I was able to career counselor. Home Medications folic acid 1 mg tablet 1 mg PO DAILYCM #0 tabs 10/18/22 nicotine 21 mg/24 hr daily transdermal patch 21 mg transdermal DAILY #0 ea 10/18/22 thiamine HCl (vitamin B1) 100 mg tablet (Vitamin B-1) 100 mg PO DAILYCM #0 tabs 10/18/22
== END 2022-10-18 10:30 | disposition home or self-care (01) | DRG 775 ==
LOC: ED 15:51 → MS3 17:36
PROVIDERS: Admitting Provider Student in an Organized Health Care Education/Training Program; Emergency Provider Student in an Organized Health Care Education/Training Program; PCP Internal Medicine; Visit Provider Internal Medicine
DX: F10.239 Alcohol dependence with withdrawal, unspecified (principal); F10.229 Alcohol dependence with intoxication, unspecified; F15.20 Other stimulant dependence, uncomplicated; K70.10 Alcoholic hepatitis without ascites; F17.210 Nicotine dependence, cigarettes, uncomplicated; Y90.0 Blood alcohol level of less than 20 mg/100 ml; R10.11 Right upper quadrant pain; Z81.1 Family history of alcohol abuse and dependence
CPT/HCPCS: 36415; 80048; 80053; 80307; 82077; 85025; 99221; 99284; 99406; A4216; G0378

== ENCOUNTER 2022-11-19 16:04 | Emergency (ER) | payer MEDICAID, SELFPAY ==
[2022-11-19 16:04] VITALS: BP 112/58; PULSE 72; RESP 16; TEMP 36.9; O2SAT 99; BMI 27.8
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
--- NOTE | 2022-11-19 16:30 | RAD_ITS ---
STUDY: X-RAY - LEFT KNEE REASON FOR EXAM: Male, 22 years old. Trauma TECHNIQUE: 4 view(s) of the knee. COMPARISON: None. FINDINGS: Normal visualized distal femur. Normal visualized proximal tibia and fibula. Normal proximal tibiofibular articulation. Normal medial femorotibial compartment. Normal lateral femorotibial compartment. Normal patellofemoral articulation. Moderate heme old lipohemarthrosis.. The soft tissue structures are unremarkable. RAD/Knee 4 or More Views IMPRESSION: Moderate lipohemarthrosis. Possible occult intra-articular fracture. Recommend follow-up nonemergent MRI. Electronically Signed: Melecio Main MD at 16:45 EDT Reading Location ID and State: [address] [place] [address] , Service support ,
[2022-11-19 17:11] VITALS: RESP 16
== END 2022-11-19 17:12 | disposition home or self-care (01) ==
PROVIDERS: Emergency Provider Emergency Medicine; PCP Internal Medicine; Visit Provider Emergency Medicine
DX: S83.005A Unspecified dislocation of left patella, initial encounter (principal); F17.210 Nicotine dependence, cigarettes, uncomplicated; M25.462 Effusion, left knee; X50.1XXA Overexertion from prolonged static or awkward postures, initial encounter; Y93.51 Activity, roller skating (inline) and skateboarding; Y92.89 Other specified places as the place of occurrence of the external cause
CPT/HCPCS: 73564; 99284

== ENCOUNTER → 2022-12-06 | Outpatient (CLI) | payer MEDICAID, SELFPAY ==
--- NOTE | 2022-12-06 06:48 | MRI_ITS ---
ACR Level 3 findings have been noted. An addendum which confirms receipt of the report will follow. HISTORY: injury. TECHNIQUE: Multiplanar and multisequence MR images of the LEFT knee were obtained without contrast. 200 images. COMPARISON: XR 11/19/2022. FINDINGS: BONE MARROW/CARTILAGE: Osteochondral fracture at the medial facet of the patella with surrounding bone marrow contusion. Osteochondral fracture of the lateral femoral condyle. Displaced and loose 1.7 cm intra-articular osteochondral fracture fragment superolaterally. Bone marrow contusions of the medial and lateral femoral condyles. Bone marrow contusions of the fibular head, lateral, and medial tibial plateau. Small nondisplaced fracture of the fibular head. JOINT SPACES: Large joint effusion. Mild lateral subluxation of the patella relative to the femur with edema of the medial patellar retinaculum. MENISCI: No medial meniscal tear. Mildly increased signal in the posterior horn of the lateral meniscus. TENDONS: Intact quadriceps and patellar tendon mechanism. LIGAMENTS: No acute tear of the anterior or posterior cruciate and lateral collateral ligaments. Mild edema around the medial collateral ligament. SOFT TISSUES: Surrounding soft tissue swelling. 1.2 cm popliteal cyst. MRI/Lower Ext Joint Only (Routine) IMPRESSION: Impaction osteochondral fractures of the medial facet of the patella and lateral femoral condyle, compatible with transient patellar dislocation injury. Large joint effusion with a 1.7 cm displaced and loose intra-articular osteochondral fracture fragment. Mild lateral subluxation of the patella with injury of the medial patellar retinaculum. Mild medial collateral ligament sprain. Mild degeneration in the posterior horn of the lateral meniscus. Bone marrow contusions of the patella, medial and lateral femoral condyles, medial and lateral tibial plateau, and fibular head with small nondisplaced fracture of the fibular head. Electronically Signed: Sarahi Madrid MD at 8:25 EDT ,
== END | disposition home or self-care (01) ==
LOC: MRI 06:37
PROVIDERS: PCP Internal Medicine; Referring Provider Orthopaedic Surgery; Visit Provider Orthopaedic Surgery
DX: S83.005A Unspecified dislocation of left patella, initial encounter (principal); S82.01 Osteochondral fracture of patella
CPT/HCPCS: 73721

== ENCOUNTER → 2023-01-13 | Outpatient (CLI) | payer MEDICAID, SELFPAY ==
[2023-01-13 15:08] LABS: Bacteria 0 SEEN /hpf (None Seen); Mucous, Urine 0 SEEN /hpf (<or=2+); Red Blood Cells-Urine 0 SEEN /hpf (0-5); Squamous Epithelial Cells - UA 0 SEEN /hpf (0-5)
[2023-01-13 16:49] LABS: Color, Urine Yellow (Yellow); Glucose, Dipstick Normal (Normal); Ketone-Dipstick Negative (Negative); Leukocyte Esterase-Dipstick 25 /ul (Negative); Nitrite-Dipstick Negative (Negative); Occult Blood-Urine Negative /ul (Negative); Protein-Dipstick Negative (Negative); Urine Bilirubin Dipstick Negative (Negative); Urine Clarity Clear (Clear); Urine Urobilinogen Normal (Normal)
[2023-01-13 17:19] LABS: White Blood Cells 0-5 SEEN /hpf (0-5)
== END | disposition home or self-care (01) ==
LOC: LABSPEC 15:06
PROVIDERS: PCP Internal Medicine; Referring Provider Internal Medicine; Visit Provider Internal Medicine
DX: R35.0 Frequency of micturition (principal)
CPT/HCPCS: 81001

== ENCOUNTER 2023-02-23 17:54 | Emergency (ER) | payer MEDICAID, SELFPAY ==
[2023-02-23 17:55] VITALS: BP 120/53; PULSE 85; RESP 18; TEMP 36.8; O2SAT 100; BMI 24.2
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
[2023-02-23] MEDS: Ondansetron 4 MG/2 ML Vial IV (18:24)
[2023-02-23] MEDS: 0.9% Normal Saline (1000mL) 1,000 ML 1000 ML IV (18:24)
[2023-02-23] MEDS: Ketorolac 15 MG/ML Vial IV (18:25)
[2023-02-23 18:26] LABS: Absolute Lymphocyte Count 1.73 X10^3/uL (0.83-4.51); Absolute Neutrophil Count 5.3 X10^3/uL (2.0-7.7); Basophil# 0.02 X10^3/uL; Basophil% 0.3 % (0-1); Eosinophil# 0.12 X10^3/uL; Eosinophils% 1.6 % (0-5); Hematocrit 42.8 % (40-54); Hemoglobin 14.3 g/dL (13.0-16.5); Lymphocyte # 1.73 X10^3/ul (0.83-4.51); Mean Corp Hgb Conc 33.4 g/dL (32-36); Mean Corpuscular Volume 89.7 fL (80-94); Mean Platelet Vol. 11.1 fl (6.2-12.0); Monocyte# 0.36 X10^3/uL; Monocyte% 4.8 % (0-10); NRBC Flagged by Analyzer 0 % (0-5); Neutrophil # 5.27 X10^3/uL (2.7-7.7); Neutrophil % 70.2 % (47-70); Platelet Count 145 K/mm3 (150-450); RBC Distribution Width CV 11.7 % (11.6-14.6); RBC Distribution Width SD 38.2 fl (35.1-43.9); Red Blood Count 4.77 M/mm3 (4.6-6.2); White Blood Count 7.5 K/mm3 (4.4-11.0)
[2023-02-23 18:44] LABS: ALB/GLOB Ratio 1.4 RATIO (0.9-2.4); AST(SGOT) 16 U/L (15-37); Alanine Aminotransfer ALT/SGPT 24 U/L (16-61); Albumin, Serum 4.1 g/dL (3.2-5.0); Alkaline Phosphatase 110 U/L (45-117); Anion Gap 6 (5-15); BUN 6 mg/dL (7-18); Chloride 105 mmol/L (98-107); Creatinine, Serum 0.75 mg/dL (0.70-1.30); EST Glomerular Filtration Rate 140 mL/min (>60); Est Glom Filt Rate - Afr Amer 169 mL/min (>60); Globulin 2.9 g/dL (2.2-4.2); Glucose 90 mg/dL (74-106); Lipase 26 U/L (13-75); Sodium Level 138 mmol/L (136-145)
[2023-02-23 18:58] LABS: Bacteria 0 SEEN /hpf (None Seen); Mucous, Urine 0 SEEN /hpf (<or=2+); Red Blood Cells-Urine 0 SEEN /hpf (0-5); Squamous Epithelial Cells - UA 0 SEEN /hpf (0-5)
[2023-02-23 18:59] LABS: Color, Urine Yellow (Yellow); Glucose, Dipstick Normal (Normal); Ketone-Dipstick 15 mg/dl (Negative); Leukocyte Esterase-Dipstick 25 /ul (Negative); Nitrite-Dipstick Negative (Negative); Occult Blood-Urine Negative /ul (Negative); Protein-Dipstick Negative (Negative); Urine Bilirubin Dipstick Negative (Negative); Urine Clarity Clear (Clear); Urine Urobilinogen Normal (Normal)
[2023-02-23 19:13] LABS: White Blood Cells 0-5 SEEN /hpf (0-5)
== END 2023-02-23 19:45 | disposition home or self-care (01) ==
PROVIDERS: Nurse Practitioner; Emergency Provider Emergency Medicine; PCP Internal Medicine; Visit Provider Emergency Medicine
DX: R11.2 Nausea with vomiting, unspecified (principal); F17.210 Nicotine dependence, cigarettes, uncomplicated; F41.9 Anxiety disorder, unspecified; R10.9 Unspecified abdominal pain; Z79.899 Other long term (current) drug therapy; F32.A Depression, unspecified
CPT/HCPCS: 80053; 81001; 83690; 85025; 96361; 96374; 96375; 99283; J7030; J2405

== ENCOUNTER 2023-05-17 10:21 | Emergency (ER) | payer SELFPAY ==
[2023-05-17 10:22] VITALS: BP 125/69; PULSE 110; RESP 16; TEMP 37.3; O2SAT 99
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
== END 2023-05-17 11:26 | disposition left against medical advice (07) ==
PROVIDERS: Emergency Provider Emergency Medicine; PCP Internal Medicine; Visit Provider Emergency Medicine
DX: J06.9 Acute upper respiratory infection, unspecified (principal); F17.210 Nicotine dependence, cigarettes, uncomplicated; F17.290 Nicotine dependence, other tobacco product, uncomplicated
CPT/HCPCS: 99282

== ENCOUNTER 2024-03-03 17:47 | Emergency (ER) | payer OTHER, BC, SELFPAY ==
[2024-03-03 17:48] VITALS: BP 123/75; PULSE 86; RESP 19; TEMP 36.2; O2SAT 99; BMI 24.1
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
--- NOTE | 2024-03-03 18:24 | RAD_ITS ---
INDICATION: injury EXAMINATION/TECHNIQUE: X-RAY - RIGHT XR Hand Min 3 Views 3 VIEWS COMPARISON: FINDINGS: SOFT TISSUES: No soft tissue swelling or gas. No radiopaque foreign body. BONES/JOINTS: No acute fracture or subluxation.. Normal alignment. Preservation of the joint space.. No sclerotic or destructive changes observed. RAD/Hand Min 3 Views IMPRESSION: No acute bony injury. Electronically Signed: Eb Patterson DO at 20:07 EDT ,
[2024-03-03 18:45] VITALS: BP 123/75; PULSE 86; RESP 19; TEMP 36.2; O2SAT 99
[2024-03-03] MEDS: Ibuprofen 600 MG Tablet PO (19:03)
== END 2024-03-03 19:04 | disposition home or self-care (01) ==
LOC: ED 18:34
PROVIDERS: Emergency Provider Emergency Medicine; Visit Provider Emergency Medicine
DX: S60.410A Abrasion of right index finger, initial encounter (principal); Y99.0 Civilian activity done for income or pay; S60.221A Contusion of right hand, initial encounter; F17.210 Nicotine dependence, cigarettes, uncomplicated; W22.8XXA Striking against or struck by other objects, initial encounter
CPT/HCPCS: 73130; 99282; A4216

== ENCOUNTER 2024-04-28 14:59 | Emergency (ER) | payer BC, SELFPAY ==
[2024-04-28 15:01] VITALS: BP 125/65; PULSE 106; RESP 16; TEMP 36.4; O2SAT 100; BMI 25.1
--- NOTE | 2024-04-28 15:20 | CT_ITS ---
STUDY: CT ABDOMEN AND PELVIS WITHOUT CONTRAST REASON FOR EXAM: Male, 23 years old. pain, hematuria RADIATION DOSAGE (If Supplied By Facility): CTDIvol = ( 6.56 ) mGy, DLP = ( 360.59 ) mGycm TECHNIQUE: Transaxial images were obtained from the dome of the diaphragm to the symphysis pubis without oral contrast, and without intravenous contrast. Sagittal and coronal images were reconstructed. Individualized dose optimization techniques were used for this CT. COMPARISON: December 08, 2020 FINDINGS: The visualized lung bases are unremarkable. The visualized portions of the heart are within normal limits. Normal liver. Normal gallbladder and extrahepatic biliary system. Normal spleen. Normal pancreas. Normal bilateral adrenal glands. Normal right kidney. Normal left kidney. Normal visualized stomach. Normal small intestine. Normal colon. Appendix is not clearly identified. There are no secondary signs for acute appendicitis Normal abdominal aorta. Normal inferior vena cava. Normal retroperitoneum. Normal urinary bladder. Normal abdominal wall. Normal osseous structures. CT/Abdomen/Pelvis without Cont IMPRESSION: Normal unenhanced CT of the abdomen and pelvis. Electronically Signed: Daljit Plata MD at 16:09 [facility] Reading Location ID and State: [facility] / [place] Tel , Service support ,
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
[2024-04-28 15:34] LABS: Bacteria 0 SEEN /hpf (None Seen); Mucous, Urine 0 SEEN /hpf (<or=2+); Squamous Epithelial Cells - UA 0 SEEN /hpf (0-5); White Blood Cells 0 SEEN /hpf (0-5)
[2024-04-28 16:15] LABS: Color, Urine Yellow (Yellow); Glucose, Dipstick Normal (Normal); Ketone-Dipstick 5 mg/dl (Negative); Leukocyte Esterase-Dipstick 25 /ul (Negative); Nitrite-Dipstick Negative (Negative); Occult Blood-Urine 50 /ul (Negative); Protein-Dipstick 15 mg/dl (Negative); Urine Bilirubin Dipstick Negative (Negative); Urine Clarity Clear (Clear); Urine Urobilinogen 1 mg/dl (Normal)
[2024-04-28 16:57] LABS: Red Blood Cells-Urine 5-10 SEEN /hpf (0-5)
[2024-04-28 17:42] VITALS: BP 124/63; PULSE 76; RESP 15; TEMP 36.4; O2SAT 99
== END 2024-04-28 17:43 | disposition home or self-care (01) ==
PROVIDERS: Emergency Medicine; Emergency Provider Emergency Medicine; Visit Provider Emergency Medicine
DX: R31.9 Hematuria, unspecified (principal); F17.200 Nicotine dependence, unspecified, uncomplicated; R36.1 Hematospermia; K21.9 Gastro-esophageal reflux disease without esophagitis; J45.909 Unspecified asthma, uncomplicated; Z11.3 Encounter for screening for infections with a predominantly sexual mode of transmission
CPT/HCPCS: 74176; 81001; 87086; 87491; 87591; 99282